=== PATIENT | male | born 1980 | race Caucasian/White ===

== ENCOUNTER 2020-01-10 19:45 | Emergency (ER) | payer BC, SELFPAY ==
[2020-01-10 19:58] VITALS: BP 128/79; PULSE 70; RESP 20; TEMP 36.8; O2SAT 100; BMI 31.3
--- NOTE | 2020-01-10 20:00 | HMH.EDUTC ---
[facility] [place] Disposition Clinical Impression: Low back pain Qualifiers: Chronicity: acute Back pain laterality: left Sciatica presence: without sciatica Qualified Code(s): M54.5 - Low back pain Disposition: Home, Self-Care Condition on Discharge: Good Instructions: Low Back Pain, DI for Low Back Pain Additional Instructions: Go home and rest. It would be best if you rested tomorrow too. No heavy lifting. No twisting. Take the oral medications as directed. The muscle relaxer (robaxin) will make you drowsy, so don't drive or operate heavy machinery after taking it. Don't start the oral steroids (medrol dose pack) until tomorrow, since you had the shots in here today. Follow up with your regular doctor. GO TO THE ER FOR ANY WORSENING SYMPTOMS OR CONCERN, ESPECIALLY BOWEL OR BLADDER ISSUES, SADDLE AREA NUMBNESS, FEVER, ETC Prescriptions: methylPREDNISolone [Medrol] 4 mg PO DIRECTED 6 Days #21 tab.ds.pk Transmission Status: Received by [facility] Methocarbamol [Robaxin 500mg Tab] 500 mg PO BIDP PRN #30 tab PRN Reason: Muscle Spasm Transmission Status: Received by [facility] Referrals: Calos Stevens MD [Primary Care Provider] - Forms: Work/School Release Time of Disposition: 20:05 Medical Decision Making - Medical Records Medical records reviewed: No: I reviewed the patient's medical records. - Andrew Inquiry Pt receiving controlled substance: No Vital Signs: 01/10/20 19:58 01/10/20 20:15 Temperature 98.2 F 98.2 F Temperature Source Oral Pulse Rate 70 Pulse Rate [Left Brachial] 70 Respiratory Rate 20 20 Blood Pressure 128/79 Blood Pressure [Left Arm] 128/79 Blood Pressure Mean [Left Arm] 95 Blood Pressure Source [Left Arm] Automatic Cuff Blood Pressure Position [Left Arm] Sitting 02 Sat by Pulse Oximetry 100 Oxygen Delivery Method Room Air Orders (Tests/Meds): ED MEDICATIONS Discontinued Medications Generic Name Dose Route Start Last Admin Trade Name Freq PRN Reason Stop Dose Admin Ketorolac Tromethamine 60 mg 01/10/20 20:01 01/10/20 20:08 Toradol 60mg/2ml Vial IM 01/10/20 20:02 60 mg ONCE ONE Administration Methylprednisolone Sodium Succinate 125 mg 01/10/20 20:01 01/10/20 20:08 Solu-Medrol 125mg/2ml Vial IM 01/10/20 20:02 125 mg ONCE ONE Administration [facility] [place] HPI - General Stated complaint: Back Pain Time Seen by Provider: 01/10/20 20:01 - History of Present Illness Provider Complaint: He reports that he has had left sided low back pain since earlier today when he bent over to pick something up. He denies that what he was picking up was heavy. He denies any recent falls or or other injuries. He denies any leg weakness or numbness. He denies any bowel or bladder issues. - Related Data Previous Rx's Medication Instructions Recorded Methocarbamol [Robaxin 500mg Tab] 500 mg PO BIDP PRN #30 tab 01/10/20 methylPREDNISolone [Medrol] 4 mg PO DIRECTED 6 Days #21 01/10/20 tab.ds.pk Allergies Allergy/AdvReac Type Severity Reaction Status Date / Time No Known Allergies Allergy Verified 01/10/20 20:01 [facility] History - Hepatitis A Screen Attestation statement:: This patient has been screened for Hepatitis A risk factors. I have reviewed the patient's past medical history: Yes Other Surgeries: Yes: No Previous Surgery - Social History Smoking Status: Never smoker Alcohol Intake: never Substance Use Type: denies use Occupational Status: employed Family Hx:: Non-contributory ROS Obtained: Yes All systems reviewed & no additional complaints - Constitutional Constitutional: Denies chills, Denies fever(s) - Musculoskeletal Musculoskeletal: Reports as per HPI - Integumentary/Breasts Skin/Breast: Denies redness, Denies rash, Denies wounds - Neurologic Neurologic: Denies tingling/numbness/burning sensations Physical Exam - General General appearance: alert, in no apparent distress
[2020-01-10 20:15] VITALS: BP 128/79; PULSE 70; RESP 20; TEMP 36.8; O2SAT 100
== END 2020-01-10 20:17 | disposition home or self-care (01) ==
PROVIDERS: Emergency Provider Nurse Practitioner Family; PCP Family Medicine
DX: M54.5 Low back pain (principal); X50.0XXA Overexertion from strenuous movement or load, initial encounter
CPT/HCPCS: 96372; 99201

== ENCOUNTER 2020-12-23 17:33 | Emergency (ER) | payer BC, SELFPAY ==
[2020-12-23 18:02] VITALS: BP 138/82; PULSE 72; RESP 19; TEMP 36.9; O2SAT 99; BMI 27.1
[2020-12-23 18:09] LABS: UTC Strep Screen (Rapid) Negative (Negative)
--- NOTE | 2020-12-23 18:21 | HMH.EDUTC ---
[facility] [place] Disposition Clinical Impression: URI (upper respiratory infection) Qualifiers: URI type: unspecified URI Qualified Code(s): J06.9 - Acute upper respiratory infection, unspecified Disposition: Home, Self-Care Condition on Discharge: Good Instructions: Sore Throat, Azithromycin, Methylprednisolone Additional Instructions: *Monitor Temp, Over the counter Motrin or Tylenol as directed/as needed Tylenol every 4 hours and Motrin every 6 hours (as long as your family doctor has told you that you can take it) for fever or pain. and straight to ER if unable to lower temp less than 101.0 after medication given *Warm salt water gargles may help to soothe the throat *Throat Lozenges *Warm fluids like tea with honey may help to soothe the throat *Sleep elevated *Humidifier/Vaporizer *Flonase 2 sprays in each nostril daily but be aware that it may take 2-3 days before you notice improvement Your throat swab was sent for culture. Those results are typically sent to your primary care. Be sure to follow up in 2-3 days with your family doctor/primary care physician if no improvement so they can review those result and treat if necessary. If you don?t have a primary care doctor, I recommend you get one but in the mean time, you will have to return to a walk in clinic Follow up IMMEDIATELY for new or worsening symptoms or no Noticeable improvement over the next 48-72 hours. 911 for difficulty breathing or swallowing Prescriptions: methylPREDNISolone [Medrol 4mg tab] 4 mg PO DIRECTED #21 tab Transmission Status: Pending to [facility] Benzonatate [Tessalon Perle 100mg Cap*] 100 mg PO TID PRN #15 cap PRN Reason: Cough Transmission Status: Pending to [facility] Azithromycin [Z-Tonio 250mg Tab] 250 mg PO DIRECTED #6 tab Transmission Status: Pending to [facility] Referrals: Calos Stevens MD [Primary Care Provider] - As needed Forms: Work/School Release Time of Disposition: 18:30 Medical Decision Making - Andrew Inquiry Pt receiving controlled substance: No Andrew was queried for this patient: No Vital Signs: 12/23/20 18:02 Temperature 98.4 F Temperature Source Oral Pulse Rate [Left] 72 Respiratory Rate 19 Blood Pressure [Right Arm] 138/82 Blood Pressure Mean [Right Arm] 100 02 Sat by Pulse Oximetry 99 - Lab Data Lab results reviewed: Yes: I reviewed the patient's lab results. Lab Results 12/23/20 18:09: Strep Scn Rapid Clinic Negative Orders (Tests/Meds): ORDERS Category Date Time Status Strep Screen Confirmation Stat Micro 12/23/20 18:09 Received [facility] [place] HPI - General Stated complaint: sore throat Time Seen by Provider: 12/23/20 18:21 Mode of Arrival: Ambulatory Source of Information: Patient Limitations: No Limitations Description of Symptoms (Recalled from Triage Doc. by RN): pt c/o sore throat and coughing. HEENT Symptoms (Recalled from RN notes): Yes (sore throat) Resp Symptoms (Recalled from RN notes): Yes (cough) Skin Symptoms (Recalled from RN notes): No MS Symptoms (Recalled from RN notes): No Functional Status (Recalled from RN notes): na - History of Present Illness Provider Complaint: Patient state that he has been having sore throat for about 3-4 days that has continued to get worse State that throat is burning and hurts when he swallows and feels raw and irritated State that feels like he may have strep throat and having some drainage and cough - Related Data Previous Rx's Medication Instructions Recorded Methocarbamol [Robaxin 500mg Tab] 500 mg PO BIDP PRN #30 tab 01/10/20 methylPREDNISolone [Medrol] 4 mg PO DIRECTED 6 Days #21 01/10/20 tab.ds.pk Azithromycin [Z-Tonio 250mg Tab] 250 mg PO DIRECTED #6 tab 12/23/20 Benzonatate [Tessalon Perle 100mg 100 mg PO TID PRN #15 cap 12/23/20 Cap*] methylPREDNISolone [Medrol 4mg 4 mg PO DIRECTED #21 tab 12/23/20 tab] Allergies Allergy/AdvReac Type Severity React
[2020-12-23 18:36] VITALS: BP 133/84; PULSE 79; RESP 16; TEMP 36.8
== END 2020-12-23 18:36 | disposition home or self-care (01) ==
PROVIDERS: Emergency Provider Nurse Practitioner; PCP Family Medicine
DX: J06.9 Acute upper respiratory infection, unspecified (principal)
CPT/HCPCS: 87880; 99202; G0463

== ENCOUNTER 2021-03-23 03:06 | Emergency (ER) | payer BC, SELFPAY ==
[2021-03-23 03:07] VITALS: BP 145/97; PULSE 111; RESP 19; TEMP 36.9; O2SAT 100; BMI 28.8
[2021-03-23 03:22] VITALS: BMI 29.7
--- NOTE | 2021-03-23 03:23 | CT_ITS ---
PROCEDURE INFORMATION: Exam: CT Abdomen And Pelvis With Contrast Exam date and time: 03/23/2021 3:23 AM Age: 40 years old Clinical indication: Nausea and vomiting and other: Diarrhea; Abdominal pain; Generalized; Patient HX: Abd cramping with n/v/d for 3 days; Additional info: Abd pain TECHNIQUE: Imaging protocol: Computed tomography of the abdomen and pelvis with contrast. Radiation optimization: All CT scans at this facility use at least one of these dose optimization techniques: automated exposure control; mA and/or kV adjustment per patient size (includes targeted exams where dose is matched to clinical indication); or iterative reconstruction. Contrast material: ISOVUE; Contrast volume: 75 ml; Contrast route: IV; COMPARISON: No relevant prior studies available. FINDINGS: Lungs: No bibasilar consolidation. Liver: No suspicious mass. Gallbladder and bile ducts: No calcified stones. No ductal dilation. Pancreas: No ductal dilation. No peripancreatic inflammatory changes. Spleen: Unremarkable. Adrenal glands: No mass. Kidneys and ureters: No hydronephrosis. Unremarkable renogram. Stomach and bowel: Non-obstructive bowel gas pattern. No significant wall thickening. Appendix: What appears to be appendix is unremarkable. Intraperitoneal space: No free air. No ascites. Vasculature: No abdominal aortic aneurysm. Lymph nodes: No enlarged lymph nodes. Urinary bladder: The urinary bladder is collapsed. Reproductive: Unremarkable as visualized. Bones/joints: No suspicious osseous lesion. No acute fracture. Soft tissues: No suspicious mass. IMPRESSION: No acute findings.
[2021-03-23 03:40] LABS: Microscopic, Urine URINE MICROSCOPIC (MICROSCOPIC)
[2021-03-23 03:42] LABS: Appearance,Urine CLEAR (Clear); Blood, Urine 1+ (Negative); Color,Urine YELLOW (Yellow); Glucose,Urine (UA) Negative (Negative); Ketones,Urine Negative (Negative); Leukocyte Esterase,Urine Negative (Negative); Nitrate,Urine Negative (Negative); Protein,Urine 2+ (Negative); Specific Gravity, Urine >= 1.030 (1.005-1.030); Urobilinogen,Urine 0.2 EU/dl (0.2)
[2021-03-23 03:43] LABS: Basophils # 0.1 K/mm3 (0-0.2); Basophils % 0.9 % (0.1-2.0); Eosinophils # 0.1 K/mm3 (0.0-0.4); Hematocrit 58.4 % (42.0-52.0); Lymphocytes # 2.3 K/mm3 (0.7-4.5); Lymphocytes % 16.5 % (10-50); Mean Corpuscular HGB Conc 33.8 g/dL (31.8-35.4); Mean Corpuscular Volume 91.8 fl (80-94); Mean Platelet Volume 8.1 fl (7.4-10.4); Monocytes # 0.6 K/mm3 (0.1-1.0); Monocytes % 4.3 % (1.7-9.3); Neutrophils # 10.6 K/mm3 (1.8-7.8); Neutrophils % 77.2 % (37.0-80.0); Platelet Count 432 K/mm3 (142-424); Red Blood Count 6.37 M/mm3 (4.60-6.20); White Blood Count 13.8 K/mm3 (4.8-10.8)
--- NOTE | 2021-03-23 03:46 | HMH.EDNVD ---
ED Disposition Clinical Impression: Gastroenteritis Disposition: Home, Self-Care Condition on Discharge: Good Instructions: DI for Acute Abdominal Pain Additional Instructions: fluids and see pcp for follow up Referrals: Calos Stevens MD [Primary Care Provider] - - Critical Care Critical Care Time: No Attestation: On 03/23/21, the high probability of a clinically significant, sudden or life threatening deterioration of the following system(s) required my full and direct attention, intervention and personal management. The time I documented below is in addition to time spent performing reported procedures but includes the following listed in this critical care notation. Medical Decision Making - Medical Records Medical records reviewed: Yes: I reviewed the patient's medical records. - Andrew Inquiry Pt receiving controlled substance: No Vital Signs: 03/23/21 03:07 Temperature 98.4 F Temperature Source Oral Pulse Rate [Right] 111 H Respiratory Rate 19 Blood Pressure [Right Arm] 145/97 H Blood Pressure Mean [Right Arm] 113 Blood Pressure Source [Right Arm] Automatic Cuff 02 Sat by Pulse Oximetry 100 Oxygen Delivery Method Room Air - Lab Data Lab results reviewed: Yes: I reviewed the patient's lab results. Lab Results 03/23/21 03:15: Urine Color Yellow, Urine Appearance Clear, Urine pH 6.0, Ur Specific [place] >= 1.030, Urine Protein 2+, Urine Glucose (UA) Negative, Urine Ketones Negative, Urine Blood 1+, Urine Nitrate Negative, Urine Bilirubin Negative, Urine Urobilinogen 0.2, Ur Leukocyte Esterase Negative, Urine WBC Occasional, Urine Bacteria 2+, Urine Mucus 1+ 03/23/21 03:30: WBC 13.8 H, RBC 6.37 H, Hgb 19.9 H, Hct 58.4 H, MCV 91.8, MCH 31.0, MCHC 33.8, RDW 14.0, Plt Count 432 H, MPV 8.1, Neut % (Auto) 77.2, Lymph % (Auto) 16.5, [place] % (Auto) 4.3, Eos % (Auto) 1.0, Baso % (Auto) 0.9, Neut # (Auto) 10.6 H, Lymph # (Auto) 2.3, [place] # (Auto) 0.6, Eos # (Auto) 0.1, Baso # (Auto) 0.1, ESR 2 03/23/21 03:30: Sodium 138, Potassium 4.0, Chloride 106, Carbon Dioxide 21 L, Anion Gap 15.0, BUN 15, Creatinine 0.80, Estimated Creat Clear 151, Estimated GFR 108, Est GFR ( Amer) 130, Glucose 179 H, Calcium 8.5, Total Bilirubin 0.8, AST 42, ALT 47, Alkaline Phosphatase 48, C-Reactive Protein 2.0, Total Protein 6.8, Albumin 4.3, Globulin 2.5, Albumin/Globulin Ratio 1.7, Amylase 69, Lipase 71, Procalcitonin 0.063 Result diagrams: 03/23/21 03:30 03/23/21 03:30 Orders (Tests/Meds): ED MEDICATIONS Generic Name Dose Route Start Last Admin Trade Name Freq PRN Reason Stop Dose Admin Sodium Chloride 1,000 mls @ 999 mls/hr 03/23/21 03:30 03/23/21 03:38 Sod Chlor 0.9% 1000ml Bag IV 03/23/21 04:30 999 mls/hr .[id number] ROSALINA Administration Sodium Chloride 8 ml 03/23/21 03:24 Sodium Chloride 0.9% 10ml Vial IV 04/22/21 03:23 NEEDED PRN dilute pepcid Discontinued Medications Generic Name Dose Route Start Last Admin Trade Name Freq PRN Reason Stop Dose Admin Diphenhydramine HCl 50 mg 03/23/21 03:37 03/23/21 03:38 Diphenhydramine 50mg/Ml Vial IV 03/23/21 03:38 50 mg ONCE ONE Administration Famotidine 20 mg 03/23/21 03:24 03/23/21 03:38 Famotidine 20mg/2ml Vial IV 03/23/21 03:25 20 mg ONCE ONE Administration Iopamidol 75 ml 03/23/21 04:35 03/23/21 04:36 Iopamidol-370 (76%);100ml Bottle IV 03/23/21 04:36 75 ml ONCE ONE Administration Ketorolac Tromethamine 30 mg 03/23/21 03:24 03/23/21 03:38 Ketorolac 30mg/Ml Vial IV 03/23/21 03:25 30 mg ONCE ONE Administration Methylprednisolone Sodium Succinate 125 mg 03/23/21 03:37 03/23/21 03:38 Methylprednisolone Sod Succ 125mg Vial IV 03/23/21 03:38 125 mg ONCE ONE Administration Metoclopramide HCl 10 mg 03/23/21 03:24 03/23/21 03:38 Metoclopramide Hcl 10mg/2ml Vial IVP 03/23/21 03:25 10 mg ONCE ONE Administration Ondansetron HCl 4 mg 03/23/21 03:24 03/23/21 03:38 Ondansetr
[2021-03-23 03:51] LABS: Bilirubin,Urine Negative (Negative)
[2021-03-23 03:56] LABS: Bacteria,Urine 2+ /lpf; Mucus,Urine 1+ /lpf; WBC,Urine Occasional #/hpf (0-3)
[2021-03-23 04:05] LABS: Hemoglobin 19.9 g/dL (14.1-18.0)
[2021-03-23 04:08] LABS: Alanine Aminotransferase 47 U/L (12-78); Albumin Level 4.3 g/dl (3.5-5.0); Albumin/Globulin Ratio 1.7 (1.1-1.8); Alkaline Phosphatase 48 U/L (38-126); Amylase 69 U/L (30-110); Aspartate Amino Transferase 42 U/L (17-59); Bilirubin,Total 0.8 mg/dl (0.2-1.3); Blood Urea Nitrogen 15 mg/dl (9-20); Calcium 8.5 mg/dl (8.4-10.2); Carbon Dioxide 21 mmol/L (22.0-30.0); Chloride 106 mmol/L (98-107); Creatinine Clearance Estimated 151 mL/min (50-200); Estimated Glomerular Filt Rate 108 ml/min (>60); GFR (African American) 130 ML/MIN (>60); Globulin 2.5 g/dL (1.3-3.2); Glucose 179 mg/dl (74-100); Lipase 71 U/L (23-300); Sodium 138 mmol/L (136-145); Total Protein,Serum 6.8 g/dl (6.3-8.2)
[2021-03-23 04:28] LABS: Procalcitonin 0.063 ng/mL (0.0-2.0)
[2021-03-23 04:31] LABS: Erythrocyte Sedimentation Rate 2 mm/hr (0-15)
[2021-03-23 05:14] VITALS: BP 135/80; PULSE 79; RESP 16; TEMP 36.8; O2SAT 99
== END 2021-03-23 05:17 | disposition home or self-care (01) ==
PROVIDERS: Emergency Provider Emergency Medicine; PCP Family Medicine
DX: K52.9 Noninfective gastroenteritis and colitis, unspecified (principal)
CPT/HCPCS: 74177; 80053; 81001; 82150; 83690; 84145; 85025; 85651; 86140; 87086; 96365; 96375; 99283; J2405; Q9967